=== PATIENT | male | born 1965 | race African-American/Black ===

== ENCOUNTER 2016-06-20 01:00 | Emergency (ER) | payer SELFPAY ==
[2016-06-20] MEDS ORDERED: EPINEPHrine 1 MG/10 ML SYR IV ONE (01:11)
[2016-06-20] MEDS ORDERED: CALCIUM CHLORIDE 100 MG/ML SYR ONE (01:13)
== END 2016-06-20 02:22 | disposition expired ==
LOC: ER 01:00
DX: I46.9 Cardiac arrest, cause unspecified (principal); N17.9 Acute kidney failure, unspecified; C80.1 Malignant (primary) neoplasm, unspecified; E87.5 Hyperkalemia
CPT/HCPCS: 36415; 80047; 85014; 92950; 96374